=== PATIENT | male | born 1955 | race Caucasian/White ===

== ENCOUNTER 2019-02-09 05:35 | Inpatient (IN) | payer OTHER ==
[2019-02-09] MEDS: DEXAMETHASONE 4 MG/ML 1 ML INJ IV (06:36)
[2019-02-09] MEDS: ONDANSETRON 4 MG INJ IV ×4 (06:36→22:07)
[2019-02-09] MEDS: LANSOPRAZOLE 30 MG CAP PO (06:36)
[2019-02-09] MEDS: oxyCODONE (CR) 10 MG TAB [oxyCONTIN] PO (06:37)
[2019-02-09] MEDS: ACETAMINOPHEN 500 MG TAB PO (06:46)
[2019-02-09] MEDS: ACETAMINOPHEN 1000MG/100ML IV 100 ML IVPB (06:46)
[2019-02-09] MEDS: LACTATED RINGER'S 1,000 ML IV ×2 (06:52→12:34)
[2019-02-09] MEDS ORDERED: morphine SULFATE/PF (10 MG/10 ML) INJ (07:37)
[2019-02-09] MEDS ORDERED: ETOMIDATE 20 MG INJ (07:44)
[2019-02-09] MEDS: TRANEXAMIC ACID 1GM/100ML(PMX) 100 ML PRE-OP X1 IVPB (08:00)
[2019-02-09] MEDS ORDERED: HYDROmorphONE 1 MG/5 ML IV SYRINGE IV ×2 (08:00)
[2019-02-09] MEDS: CEFAZOLIN 1 GM/50 ML (PMX) 50 ML IVPB (08:00)
[2019-02-09] MEDS ORDERED: CEFAZOLIN 1 GM INJ (08:29)
[2019-02-09] MEDS ORDERED: DEXAMETHASONE 4 MG/ML 5 ML INJ (08:29)
[2019-02-09] MEDS ORDERED: ONDANSETRON 4 MG INJ (08:29)
[2019-02-09] MEDS: TRANEXAMIC ACID 1GM/100ML(PMX) 100 ML (08:45)
[2019-02-09] MEDS: TRANEXAMIC ACID 1GM/100ML(PMX) 100 ML INTRA-OP X1 IVPB (08:46)
[2019-02-09] MEDS: BACITRACIN 50000 UNITS INJ (09:09)
[2019-02-09] MEDS: POLYMYXIN B 500000 UNIT INJ (09:10)
[2019-02-09] MEDS: HIP PAIN COCKTAIL VANCO INJ (09:11)
[2019-02-09] MEDS ORDERED: ZOLPIDEM 5 MG TAB PO (09:30)
[2019-02-09] MEDS ORDERED: ONDANSETRON 4 MG INJ IV (09:30)
[2019-02-09] MEDS ORDERED: NALOXONE (0.4 MG/ML) INJ IV ×2 (09:30→10:30)
[2019-02-09] MEDS ORDERED: HYDROmorphONE 0.5 MG/0.5 ML SYG IV ×2 (09:30)
[2019-02-09] MEDS ORDERED: TRANEXAMIC ACID 1GM/100ML(PMX) 100 ML (09:58)
[2019-02-09] MEDS ORDERED: FLUMAZENIL 0.5 MG INJ (10:04)
[2019-02-09] MEDS ORDERED: ROPIVACAINE 0.5 % 30 ML VIAL (10:05)
[2019-02-09] MEDS ORDERED: SENNA/DOCUSATE NA (8.6MG/50MG) TAB PO (10:30)
[2019-02-09] MEDS ORDERED: NACL 0.9% 3 ML SYG IV (10:30)
[2019-02-09] MEDS ORDERED: MAGNESIUM HYDROXIDE 30ML CUP PO (10:30)
[2019-02-09] MEDS ORDERED: NA PHOSPHATE/BIPHOS 133 ML ENEMA PR (10:30)
[2019-02-09] MEDS ORDERED: BISACODYL 10 MG SUPP PR (10:30)
[2019-02-09] MEDS ORDERED: KETOROLAC 15 MG INJ IV (10:30)
[2019-02-09] MEDS: DOCUSATE SODIUM 100 MG CAP PO (11:15)
[2019-02-09] MEDS: CEFAZOLIN 2 GM/50 ML (PMX) 50 ML IVPB ×2 (11:15→18:17)
[2019-02-09] MEDS: GABAPENTIN 100 MG CAP PO ×2 (12:45→21:02)
[2019-02-09] MEDS: DIPHENHYDRAMINE 50 MG INJ IV (21:18)
[2019-02-10] MEDS ORDERED: ZOLPIDEM 5 MG TAB PO
[2019-02-10] MEDS: CEFAZOLIN 2 GM/50 ML (PMX) 50 ML IVPB (02:11)
[2019-02-10] MEDS: oxyCODONE 5 MG TAB PO ×4 (04:32→19:41)
[2019-02-10] MEDS: ONDANSETRON 4 MG INJ IV (04:32)
[2019-02-10] MEDS: DIPHENHYDRAMINE 50 MG INJ IV (04:32)
[2019-02-10 05:11] LABS: ADD MAN DIFF? NO
[2019-02-10 05:14] LABS: WHITE BLOOD COUNT 15.5 10^3/ul (4.8-10.8)
[2019-02-10 05:14] LABS: ABNORMAL IP MESSAGE 1; BASOPHILS % 0.1 % (0.0-2.0); HEMATOCRIT 33.3 % (42.0-52.0); LYMPHOCYTES # 0.5 10^3/ul (0.8-2.9); LYMPHOCYTES % 3.4 % (15.0-51.0); MEAN CORPUSCULAR HEMOGLOBIN 29.6 pg (29.0-33.0); MEAN CORPUSCULAR VOLUME 89.5 fl (82.0-101.0); MONOCYTES % 6.6 % (0.0-11.0); NEUTROPHIL # 13.9 10^3/ul (1.6-7.5); NEUTROPHILS % 89.4 % (39.0-77.0); PLATELET COUNT 268 10^3/UL (140-415); POSITIVE DIFF @See below; RED BLOOD COUNT 3.72 10^6/ul (4.70-6.10); RED CELL DISTRIBUTION WIDTH 13.4 % (11.5-14.5)
[2019-02-10] MEDS: PANTOPRAZOLE (EC) 40 MG TAB PO (05:21)
[2019-02-10 05:34] LABS: INR 0.99; PROTIME 13.2 Sec (11.9-14.9)
[2019-02-10 05:42] LABS: ANION GAP 7 (5-13); BLOOD UREA NITROGEN 20 mg/dl (7-20); CALCIUM 8.6 mg/dl (8.4-10.2); CARBON DIOXIDE 24 mmol/L (21-31); CHLORIDE 105 mmol/L (97-110); CREATININE 0.94 mg/dl (0.61-1.24); Estimated GFR > 60 mL/min (>60); GLUCOSE 127 mg/dl (70-220); POTASSIUM 4.6 mmol/L (3.5-5.1); SODIUM 136 mmol/L (135-144)
[2019-02-10] MEDS: ASPIRIN (EC) 81 MG TAB PO ×2 (09:07→20:21)
[2019-02-10] MEDS: CELECOXIB 100 MG CAP PO ×2 (09:07→20:31)
[2019-02-10] MEDS: DOCUSATE SODIUM 100 MG CAP PO ×2 (09:07→20:21)
[2019-02-10] MEDS: GABAPENTIN 100 MG CAP PO ×3 (09:07→20:22)
[2019-02-10] MEDS: BISACODYL (EC) 5 MG TAB PO (12:40)
[2019-02-10] MEDS: ATORVASTATIN 20 MG TAB PO (20:21)
[2019-02-11] MEDS: oxyCODONE 5 MG TAB PO (05:04)
[2019-02-11] MEDS: PANTOPRAZOLE (EC) 40 MG TAB PO (05:05)
[2019-02-11 05:42] LABS: ADD MAN DIFF? NO
[2019-02-11 05:48] LABS: WHITE BLOOD COUNT 11.1 10^3/ul (4.8-10.8)
[2019-02-11 05:48] LABS: BASOPHILS % 0.2 % (0.0-2.0); EOSINOPHILS # 0.1 10^3/ul (0.0-0.5); EOSINOPHILS % 0.7 % (0.0-7.0); HEMATOCRIT 32.6 % (42.0-52.0); LYMPHOCYTES # 1.3 10^3/ul (0.8-2.9); LYMPHOCYTES % 11.6 % (15.0-51.0); MEAN CORPUSCULAR HEMOGLOBIN 30.6 pg (29.0-33.0); MEAN CORPUSCULAR HGB CONC 33.7 g/dl (32.0-37.0); MEAN CORPUSCULAR VOLUME 90.6 fl (82.0-101.0); MEAN PLATELET VOLUME 10.2 fl (7.4-10.4); MONOCYTE # 1.1 10^3/ul (0.3-0.9); MONOCYTES % 10.2 % (0.0-11.0); NEUTROPHIL # 8.5 10^3/ul (1.6-7.5); NEUTROPHILS % 76.8 % (39.0-77.0); PLATELET COUNT 228 10^3/UL (140-415); RED CELL DISTRIBUTION WIDTH 13.4 % (11.5-14.5)
[2019-02-11 06:13] LABS: PROTIME 13.3 Sec (11.9-14.9)
[2019-02-11 06:39] LABS: ANION GAP 4 (5-13); BLOOD UREA NITROGEN 22 mg/dl (7-20); CALCIUM 8.5 mg/dl (8.4-10.2); CARBON DIOXIDE 30 mmol/L (21-31); CHLORIDE 106 mmol/L (97-110); CREATININE 0.91 mg/dl (0.61-1.24); Estimated GFR > 60 mL/min (>60); GLUCOSE 119 mg/dl (70-220); POTASSIUM 3.9 mmol/L (3.5-5.1); SODIUM 140 mmol/L (135-144)
[2019-02-11] MEDS: DOCUSATE SODIUM 100 MG CAP PO (08:52)
[2019-02-11] MEDS: GABAPENTIN 100 MG CAP PO ×2 (08:52→13:11)
[2019-02-11] MEDS: CELECOXIB 100 MG CAP PO (08:52)
[2019-02-11] MEDS: ASPIRIN (EC) 81 MG TAB PO (08:52)
[2019-02-11] MEDS ORDERED: BISACODYL (EC) 5 MG TAB PO (09:00)
== END 2019-02-11 15:30 | disposition home health service (06) | DRG 470 ==
LOC: REC 05:35 → MS1 11:55
PROC: 0SRB03Z Replacement of Left Hip Joint with Ceramic Synthetic Substitute, Open Approach (ICD-10-PCS; principal; 2019-02-09 07:28)
DX: M16.12 Unilateral primary osteoarthritis, left hip (principal); E78.5 Hyperlipidemia, unspecified; K59.00 Constipation, unspecified
CPT/HCPCS: 72170; 73500; 73530; 80048; 85025; 85610; 86850; 86900; 86901; 88304; 88311; 97110; 97116; 97161; 97168; 97530; 97535